=== PATIENT | male | born 1940 | race Caucasian/White ===

== ENCOUNTER → 2021-03-06 | Outpatient (CLI) | payer BC ==
--- NOTE | 2021-03-06 15:49 | 2DMMODE ---
[place] [address] 2 D/M-MODE ECHOCARDIOGRAM Name: MAI YOUNG Room: [facility]#: [id number] Admission: 03/06/21 Attend Phys: Zaynab Wheeler, Discharge: Date of : 38 Date of Service: 03/06/21 1549 Report #: [id number] THIS REPORT FOR: cc: Shahla Meeks MD, Jayne MD Holkins,Humphrey Rocha MD [facility] ~ APPROVED REPORT Study performed: 03/06/2021 14:54:51 EXAM: Comprehensive 2D, Doppler, and color-flow Echocardiogram Patient Location: Out-Patient BSA: 2.20 HR: 63 bpm BP: 142/88 mmHg Other Information Study Quality: Technically Limited Technically limited study due to body habitus. Indications Cardiomyopathy Echo Enhancing Agent Indication: Endocardial border delineation Agent(s) / Amount(s) Used: Optison 4 cc 2D Dimensions IVSd: 11.66 (7-11mm) LVOT Diam: 21.15 (18-24mm) LVDd: 44.41 mm PWd: 11.76 (7-11mm) Ascending Ao: 29.62 (22-36mm) LVDs: 30.73 (25-40mm) Aortic Root: 37.75 mm Volumes Left Atrial Volume (Systole) LA ESV Index: 16.70 mL/m2 Aortic Valve AoV Peak Ricki.: 0.89 m/s AO Peak Gr.: 3.18 mmHg LVOT Max P.75 mmHg AO Mean Gr.: 2.00 mmHg LVOT Mean P.38 [place] [address] 2 D/M-MODE ECHOCARDIOGRAM Name: MAI YOUNG Room: [facility]#: [id number] Admission: 03/06/21 Attend Phys: Zaynab Wheeler, Discharge: Date of : 38 Date of Service: 03/06/21 1549 Report #: [id number] LVOT Max V: 0.83 m/s AO V2 VTI: 20.77 cm LVOT Mean V: 0.54 m/s MARY CARMEN (VTI): 2.84 cm2 LVOT V1 VTI: 16.81 cm Mitral Valve E/A Ratio: 0.59 MV Decel. Time: 493.12 ms MV E Max Ricki.: 0.45 m/s MV PHT: 143.01 ms MVA (PHT): 1.54 cm2 TDI E/Lateral E': 7.50 E/Medial E': 9.00 Medial E' Ricki.: 0.05 m/s Lateral E' Ricki.: 0.06 m/s Pulmonary Valve PV Peak Ricki.: 0.82 m/s PV Peak Gr.: 2.68 mmHg Tricuspid Valve RAP Estimate: 5.00 mmHg TR Peak Gr.: 19.15 mmHg RVSP: 24.15 mmHg PA Pressure: 24.15 mmHg Left Ventricle The left ventricle is normal size. There is normal LV segmental wall motion. There is normal left ventricular wall thickness. Left ventricular systolic function is normal. The left ventricular ejection fraction is within the normal range. LVEF is 55%. Grade I - abnormal relaxation pattern. Right Ventricle The right ventricle is normal size. The right ventricular systolic function is normal. Pacemaker lead is present in the right ventricle. Atria The left atrium size is normal. Pacemaker lead is present in the right atrium. Aortic Valve The aortic valve is normal in structure. No aortic regurgitation is present. There is no aortic valvular stenosis. Mitral Valve The mitral valve is normal in structure. There is no mitral valve regurgitation noted. No evidence of [place] [address] 2 D/M-MODE ECHOCARDIOGRAM Name: MAI YOUNG Room: [facility]#: [id number] Admission: 03/06/21 Attend Phys: Zaynab Wheeler, Discharge: Date of : 38 Date of Service: 03/06/21 1549 Report #: [id number] Tricuspid Valve The tricuspid valve is normal in structure. Mild tricuspid regurgitation. Pulmonic Valve The pulmonary valve is normal in structure. There is no pulmonic valvular regurgitation. Great Vessels The aortic root is normal in size. IVC is normal in size and collapses >50% with inspiration. Pericardium There is no pericardial effusion. <Conclusion> The left ventricle is normal size. There is normal left ventricular wall thickness. Left ventricular systolic function is normal. The left ventricular ejection fraction is within the normal range. LVEF is 55%. Grade I - abnormal relaxation pattern. The right ventricle is normal size. The aortic valve is normal in structure. The mitral valve is normal in structure. The tricuspid valve is normal in structure. Mild tricuspid regurgitation. IVC is normal in size and collapses >50% with inspiration. There is no pericardial effusion. There is normal LV segmental wall motion. <ELECTRONICALLY SIGNED> By: Humphrey Swartz MD, FACC 03/06/21 1549 1549 1549 Humphrey Swartz MD, FACC /INF
== END ==
LOC: M.CRD 13:40
PROVIDERS: ATTEND Nurse Practitioner
DX: I07.1 Rheumatic tricuspid insufficiency (principal); I42.8 Other cardiomyopathies; Z95.0 Presence of cardiac pacemaker